=== PATIENT | female | born 1980 | race Caucasian/White ===

== ENCOUNTER 2018-08-12 23:26 | Emergency (ER) | payer MEDICAID ==
[~2018-08-12] VITALS: Ht 165.1 cm; Wt 92.7 kg
[2018-08-12 23:48] VITALS: Ht 165.1 cm; Wt 92.7 kg
[2018-08-12] MEDS ORDERED: GABAPENTIN100 MG (23:49)
[2018-08-12] MEDS ORDERED: XANAX1 MG PO (23:50)
[2018-08-13] MEDS ORDERED: DICLOFENAC SODI50 MG PO (01:00)
[2018-08-13 01:10] VITALS: BP 134/75
== END 2018-08-13 01:10 | disposition home or self-care (01) ==
LOC: D.ER 23:26
DX: M25.512 Pain in left shoulder (principal); M25.571 Pain in right ankle and joints of right foot